=== PATIENT | female | born 1995 | race Two or more races ===

== ENCOUNTER 2020-10-30 14:02 | Emergency (ER) | payer MEDICAID ==
[~2020-10-30] VITALS: Ht 160 cm; Wt 77.1 kg
[2020-10-30] MEDS ORDERED: ONDANSETRON 4 MG/2 ML VIAL IM ONE (14:30)
[2020-10-30] MEDS ORDERED: HALOPERIDOL LACTATE 5 MG/1 ML VIAL IM ONE (14:30)
[2020-10-30] MEDS ORDERED: HALOPERIDOL LACTATE 5 MG/1 ML VIAL ONE (14:31)
[2020-10-30] MEDS ORDERED: ONDANSETRON 4 MG/2 ML VIAL ONE (14:31)
[2020-10-30 15:07] LABS: BASOPHILS % (AUTO) 0.5 % (0.0-2.0); EOSINOPHILS % (AUTO) 0.1 % (0.0-7.0); HEMATOCRIT 40.3 % (31.2-41.9); HEMOGLOBIN 13.7 g/dL (10.9-14.3); LYMPHOCYTES # (AUTO) 1.2 K/uL (20.0-40.0); LYMPHOCYTES % (AUTO) 18.4 % (20.5-51.5); MEAN CORPUSCULAR HEMOGLOBIN 31.9 uug (24.7-32.8); MEAN CORPUSCULAR HGB CONC 34 g/dL (32.3-35.6); MEAN CORPUSCULAR VOLUME 93.5 fL (75.5-95.3); MONOCYTES # (AUTO) 0.3 K/uL (2.0-10.0); MONOCYTES % (AUTO) 4.3 % (0.0-11.0); NEUTROPHILS # (AUTO) 4.9 K/uL (1.8-8.9); NEUTROPHILS % (AUTO) 76.7 % (38.5-71.5); PLATELET COUNT (AUTO) 287 K/uL (179-408); RED BLOOD CELL COUNT(AUTO) 4.31 MIL/uL (3.63-4.92); WHITE BLOOD COUNT (AUTO) 6.4 K/uL (3.8-11.8)
[2020-10-30 15:18] LABS: *BILIRUBIN,URIN NEGATIVE (NEGATIVE); *BLOOD, URINE NEGATIVE (NEGATIVE); *CLARITY,URINE CLEAR (CLEAR); *COLOR,URINE LIGHT YELLOW (YELLOW); *KETONES,URINE NEGATIVE (NEGATIVE); *UROBILINOGEN,URINE 0.2 E.U./dl (NORMAL); LEUKOCYTE ESTERASE ,URINE NEGATIVE (NEGATIVE); NITRITE, URINE NEGATIVE (NEGATIVE); PH,URINE 6.5 (5.0-8.0); UGLUCOSE TRACE (NEGATIVE)
[2020-10-30 15:21] LABS: *AMPHETAMINE, URINE NEGATIVE (NEGATIVE); *CANNABINOID, URINE NEGATIVE (NEGATIVE); *COCCAINE, URINE NEGATIVE (NEGATIVE); *OPIATE, URINE NEGATIVE (NEGATIVE); *PHENCYCLIDINE SCREEN,URINE NEGATIVE (NEGATIVE)
[2020-10-30 15:22] LABS: *URINE HCG, QUAL NEG (NEGATIVE)
[2020-10-30 15:29] LABS: ALANINE AMINOTRANSFERASE 21 U/L (14-59); ALKALINE PHOSPHATASE 70 U/L (50-136); ASPARTATE AMINOTRANSFERASE 13 U/L (15-37); BILIRUBIN,DIRECT 0.1 mg/dL (0.0-0.2); BILIRUBIN,TOTAL 0.6 mg/dL (0.2-1.0); CARBON DIOXIDE 21 mmol/L (21-32); CHLORIDE 107 mmol/L (98-107); CREATININE 0.6 mg/dL (0.6-1.3); GLUCOSE 92 mg/dL (74-106); POTASSIUM 2.9 mmol/L (3.5-5.1); TOTAL PROTEIN, SERUM 7.3 g/dL (6.4-8.2); UREA NITROGEN, BLOOD 10 mg/dL (7-18)
[2020-10-30 15:33] LABS: ETHANOL 255 MG/DL (0-0)
--- NOTE | 2020-10-30 16:28 | NUR ---
Pt with sitter (Yvette) asleep but easily rousable with RAC G20 saline lock intact NAD VSS RA
--- NOTE | 2020-10-30 17:00 | NUR ---
NOEL JARRELL (AUNT Number: [phone] ) called for update along with mother of pt. Aunt agrees to picker / packer pt but she needs to coordinate transport. she states she will call back. Pt is medically cleared. Pt is asleep but easily rousable. Sitter: Yvette
[2020-10-30 18:52] LABS: THYROID STIMULATING HORMONE 0.861 mIU/mL (0.358-3.740)
--- NOTE | 2020-10-30 19:47 | NUR ---
AT 1935 AUDELIA SAUNDERS TEL-EAVUATED AND CLEARED THE PT, PT HAD IV D/C'D INTACT. PT DISCHARGED TO PT'S AUNT(RENAN BRENNER-[phone]). PT ALSO PROVIDED WITH [facility] HELP LINE PHONE NUMBER. PT AMBULATED W/O DIFF/TOOK ALL BELONGINGS.
[2020-10-30 19:51] VITALS: BP 140/88
[2020-10-30 22:32] LABS: ACETAMINOPHEN < 2.0 ug/mL (10-30)
== END 2020-10-30 19:52 | disposition home or self-care (01) ==
LOC: ER 14:05
DX: F10.129 Alcohol abuse with intoxication, unspecified (principal); R41.82 Altered mental status, unspecified; F16.90 Hallucinogen use, unspecified, uncomplicated; Y90.8 Blood alcohol level of 240 mg/100 ml or more; F31.9 Bipolar disorder, unspecified
CPT/HCPCS: 36415; 71045; 80048; 80076; 80299; 80307; 80320; 81003; 84443; 84703; 85025; 93005; 96372 ×2; 99285; J1630; J2405; A4663; G0480